=== PATIENT | female | born 1985 | race Caucasian/White ===

== ENCOUNTER 2017-04-04 05:52 | Day surgery (SDC) | payer OTHER ==
[2017-04-04] MEDS ORDERED: NACL 0.9% 1000 ML 1,000 ML IV SCH (07:00)
[2017-04-04] MEDS ORDERED: WATER FOR IRRIG STERILE IR ONE (07:27)
[2017-04-04] MEDS ORDERED: DIPRIVAN 10 MG/ML IV ONE (07:29)
--- NOTE | 2017-04-04 07:34 | Anesthesia Consultation ---
Anesthesia Consult and Med Hx Date of service: 04/04/17 - Airway Anesthetic Teeth Evaluation: Good ROM Head & Neck: Adequate Mental/Hyoid Distance: Adequate Mallampati Class: Class II Intubation Access Assessment: Probably Good - Pulmonary Exam CTA: Yes - Cardiac Exam Cardiac Exam: RRR - Pre-Operative Health Status ASA Pre-Surgery Classification: ASA3 Proposed Anesthetic Plan: MAC - Pulmonary Hx Smoking: Yes (social) Hx Asthma: No - Cardiovascular System Hx Hypertension: No - Central Nervous System Hx Psychiatric Problems: Yes (depression) - Other Systems Hx Obesity: Yes ([place]) - Additional Comments Anesthesia Medical History Comments: NAC
--- NOTE | 2017-04-04 07:35 | Anesthesia Day of Surgery ---
Anesthesia Day of Surgery - Day of Surgery Patient Examined: Yes Patient H&P Reviewed: Yes Patient is NPO: Yes
--- NOTE | 2017-04-04 07:53 | Discharge Summary ---
Providers - Providers Date of discharge: 04/04/17 Attending physician: GHAZALA BRASWELL Hospitalization Condition: Good Procedures: egd Disposition: DC-01 TO HOME OR SELFCARE Core Measure Documentation - Palliative Care Palliative Care/ Comfort Measures: Not Applicable - Core Measures Any of the following diagnoses?: none Exam - Physical Exam Narrative exam: unchanged from pre op - Constitutional Vitals: Temp Pulse Resp BP Pulse Ox 97.4 F L 64 14 115/76 98 04/04/17 07:16 04/04/17 07:16 04/04/17 07:16 04/04/17 07:16 04/04/17 07:16 Plan Activity: advance as tolerated Weight Bearing Status: Full Weight Bearing Diet: regular
--- NOTE | 2017-04-04 07:57 | Operative Report ---
Operative Report Operative Report: OPERATIVE REPORT - EGD DATE 04/04/17 SURGERY: Upper endoscopy. SURGEON: Andi Lux M.D. PROCEDURE: 1. EGD 2. Gastric mucosal bx PRE OP DX: dyspepsia POST OP DX: 1. gastritis 2. hiatal hernia TYPE OF ANESTHESIA: MAC. ESTIMATED BLOOD LOSS: None. COMPLICATIONS: None. SPECIMENS REMOVED: None. FINDINGS: 1. Small hiatal hernia. 2. gastritis INDICATIONS:INDICATION FOR PROCEDURE: Patient is a 31-year-old female with a long history of morbid obesity. She is planned to have a weight loss procedure and is here for preoperative planning EGD. We are evaluating for any pathology that will be prohibitive to her upcoming bariatric surgery. PROCEDURE DETAILS: After consent was reviewed, patient was taken back to the operating room where patient was placed in the left lateral decubitus position and a bite block was placed in the mouth. After a time-out was called, MAC anesthesia was initiated. I then passed the endoscope into her oropharynx, into her esophagus, visualized the entire esophagus, which was all within normal limits. I then visualized the stomach and the first portion of the duodenum and there were no abnormalities with the exception of patchy cobble stonning of the mucosa consistent with chronic gastritis. A forceps biopsy was performed. I then retroflexed the scope in the stomach and visualized the hiatus and I could see a small hiatal hernia. I then desufflated the stomach and removed the endoscope. Patient tolerated procedure well and was transferred to recovery room in good and stable condition.
[2017-04-04 08:07] VITALS: BP 107/96
--- NOTE | 2017-04-04 08:45 | Post Anesthesia Evaluation ---
- Post Anesthesia Evaluation Patient Participated: Yes Airway Patent: Yes Stable Respiratory Function: Yes Nausea/Vomiting: No Temp > 96.8F: Yes Pain Manageable: Yes Adequeate Hydration: Yes Anesthesia Complications: No Block Receding Appropriately: Not Applicable Patient on Ventilator: No
== END 2017-04-04 05:53 | disposition home or self-care (01) ==
LOC: GIO 05:52
PROVIDERS: ATTEND Surgery
DX: K29.70 Gastritis, unspecified, without bleeding (principal); F17.200 Nicotine dependence, unspecified, uncomplicated; F32.9 Major depressive disorder, single episode, unspecified; E66.01 Morbid (severe) obesity due to excess calories; K44.9 Diaphragmatic hernia without obstruction or gangrene; F41.9 Anxiety disorder, unspecified; Z68.42 Body mass index [BMI] 45.0-49.9, adult
CPT/HCPCS: 43239; 81025; 88305; 88342; J2704; J7030

== ENCOUNTER 2017-04-10 07:35 | Inpatient (IN) | payer OTHER ==
[2017-04-10] MEDS ORDERED: NACL BACTERIOSTATIC INFILTRATI ONE (08:39)
--- NOTE | 2017-04-10 08:40 | Anesthesia Consultation ---
Anesthesia Consult and Med Hx Date of service: 04/10/17 - Airway Anesthetic Teeth Evaluation: Good ROM Head & Neck: Adequate Mental/Hyoid Distance: Adequate Mallampati Class: Class II Intubation Access Assessment: Probably Good - Pulmonary Exam CTA: Yes - Cardiac Exam Cardiac Exam: RRR - Pre-Operative Health Status ASA Pre-Surgery Classification: ASA3 Proposed Anesthetic Plan: General - Pulmonary Hx Smoking: Yes (social) Hx Asthma: No - Cardiovascular System Hx Hypertension: No - Central Nervous System Hx Psychiatric Problems: Yes (depression) - Hematic Hx Anemia: No Hx Sickle Cell Disease: No - Other Systems Hx Alcohol Use: No Hx Substance Use: No Hx Cancer: No Hx Obesity: Yes (morbid)
--- NOTE | 2017-04-10 08:40 | Anesthesia Day of Surgery ---
Anesthesia Day of Surgery - Day of Surgery Patient Examined: Yes Patient H&P Reviewed: Yes Patient is NPO: Yes
[2017-04-10] MEDS ORDERED: DILAUDID IV PRN (08:41)
[2017-04-10] MEDS ORDERED: XYLOCAINE 1% 20 mL ONE (08:47)
[2017-04-10] MEDS ORDERED: MARCAINE-EPI/PF 0.5%-1:200,000 INFILTRATI ONE ×2 (08:48→11:07)
[2017-04-10] MEDS ORDERED: XYLOCAINE MPF 2% ONE (08:56)
[2017-04-10] MEDS ORDERED: ZEMURON IV ONE (08:56)
[2017-04-10] MEDS ORDERED: SUBLIMAZE ONE (08:56)
[2017-04-10] MEDS ORDERED: DIPRIVAN 10 MG/ML IV ONE ×2 (08:56→11:44)
[2017-04-10] MEDS ORDERED: PEPCID IV NR (09:00)
[2017-04-10] MEDS ORDERED: VERSED IV NR (09:00)
[2017-04-10] MEDS ORDERED: LACTATED RINGERS 1,000 ML IV SCH (09:00)
[2017-04-10] MEDS ORDERED: PERCOCET 5/325 PO PRN (09:15)
[2017-04-10] MEDS ORDERED: ZOFRAN IV PRN ×2 (09:15→10:32)
[2017-04-10] MEDS ORDERED: ANCEF/STERILE WATER 2 GM/20 ML IV NR (10:00)
[2017-04-10] MEDS ORDERED: FLAGYL 500 MG/100 ML 500 MG/100 ML BAG IV NR (10:00)
[2017-04-10] MEDS ORDERED: TRANSDERM-SCOP TD NR (10:00)
[2017-04-10] MEDS ORDERED: LOVENOX SUB-Q NR (10:30)
[2017-04-10] MEDS ORDERED: MYLICON PO PRN (10:32)
[2017-04-10] MEDS ORDERED: MORPHINE IV PRN (10:32)
[2017-04-10] MEDS ORDERED: APRESOLINE IV PRN (10:32)
[2017-04-10] MEDS ORDERED: REGLAN IV PRN (10:32)
[2017-04-10] MEDS ORDERED: NORCO PO PRN (10:32)
[2017-04-10] MEDS ORDERED: NEOSTIGMINE ONE (10:59)
[2017-04-10] MEDS ORDERED: ROBINUL ONE (10:59)
[2017-04-10] MEDS ORDERED: XYLOCAINE 1% 20 mL INFILTRATI ONE (11:06)
[2017-04-10] MEDS ORDERED: NACL 0.9% IR ONE ×2 (11:07)
[2017-04-10] MEDS ORDERED: NEO SYNEPHRINE ONE (11:36)
[2017-04-10] MEDS ORDERED: DILAUDID ONE (11:49)
[2017-04-10] MEDS ORDERED: LACTATED RINGERS 1,000 ML ONE (12:04)
--- NOTE | 2017-04-10 12:38 | Operative Report ---
Operative Report Operative Report: Operative Report DATE OF PROCEDURE: 04/10/17 PREOPERATIVE DIAGNOSES: Morbid obesity, hiatal hernia POSTOPERATIVE DIAGNOSES: 1.same as pre-op SURGEON: Andi Lux M.D. CAREER COORDINATOR: Venus Wren MD, Cheng Boles CSA PROCEDURE: 1. laparoscopic sleeve gastrectomy 2. laparoscopic hiatal hernia repair ANESTHESIA: General. ESTIMATED BLOOD LOSS: <5 mL. COMPLICATIONS: None. SPECIMEN: Partial gastrectomy. FINDINGS: 1. hiatal hernia INDICATION FOR PROCEDURE: Patient is a 31-year-old female with a long history of morbid obesity. She has tried multiple efforts at weight loss without jail success. She is here today for sleeve gastrectomy. PROCEDURE IN DETAIL: After consent was reviewed, patient was taken back to the operating room, where patient was placed supine on the bed with both arms out. The patient's legs were doubly strapped to the bed. Patient had a foot board in place. Patient had a body warmer placed by anesthesia. Patient was then prepped and draped in normal sterile surgical fashion. After a time-out was called, I made a stab incision in the left subcostal area and placed a Veress needle through this incision and insufflated the abdomen to 18 mmHg pressure. I then counted down a handsbreadth below the xiphoid process in the midline and slightly left lateral injected local anesthetic and made about 0.5 cm transverse incision. I then used a 5-mm Optiview trocar to enter into the abdomen. I then placed a 45-degree scope through this port and inspected the abdomen. There was no injury on entry of the abdomen. I then placed two 5-mm ports in the right upper quadrant, one along left the anterior axillary line and 1 subxiphoid below the costovertebral angle. I then placed a 15-mm port about a handsbreadth right lateral and inferior to my anterior axillary port. I then placed the liver retractor through the subxiphoid port and placed the patient in full reverse Trendelenburg. The GE junction was noted to above the level of the diaphragmatic hiatus. The right and left crura were skeletonized accentuating a small hiatal hernia. An anterior cruraplasty was perfromed with a figure-of-8 stitch using surgidac suture to reapproximate the crura. The stomach and 2cm of distal esophagus were resting in the abdominal cavity without tension. I then identified the pylorus and then counted off 6cm from the pylorus. I then used a LigaSure cutting device to enter into the lesser sac. At that point and then I took down the short gastrics all the way up to the left edie. Then I had anesthesia pass down a 36-Qatari bougie along the lesser curvature of the stomach. I made sure everything else was out of the abdomen except the bougie. I then created my gastric sleeve using a 60-mm laparoscopic stapler. . The sleeve looked good without any twisting or torsion. I then had anesthesia to remove the bougie. Hemostasis was obtained along the staple line. I then used Tiseel along the entirety of the staple line and some on the liver. I then removed liver grasper and took it off the field. I then removed the stomach through the 15-mm port. I then closed that fascia with a #1 PDS in a [id number] fashion using a Rodríguez-Chloé. I then desufflated the abdomen and then removed all port sites. I then closed the incisions with 4-0 Monocryl in subcuticular fashion. I then dressed the wounds with Dermabond. Patient tolerated the procedure well and was transferred to recovery room in good and stable condition.
[2017-04-10] MEDS: LACTATED RINGERS 1,000 ML IV SCH (15:36)
[2017-04-10] MEDS: DILAUDID IV PRN ×2 (17:13→21:28)
[2017-04-10] MEDS: TORADOL IV SCH (18:02)
[2017-04-10] MEDS: ANCEF/NS 1 GM/50 ML 1 GM/50 ML BAG IV SCH (18:04)
[2017-04-10] MEDS: FLAGYL 500 MG/100 ML 500 MG/100 ML BAG IV SCH (18:05)
[2017-04-11] MEDS: LACTATED RINGERS 1,000 ML IV SCH ×2 (00:28→11:07)
[2017-04-11] MEDS: TORADOL IV SCH ×4 (01:11→12:46)
[2017-04-11] MEDS: DILAUDID IV PRN ×4 (01:22→16:11)
[2017-04-11] MEDS: FLAGYL 500 MG/100 ML 500 MG/100 ML BAG IV SCH ×2 (03:00→11:00)
[2017-04-11 03:31] LABS: Basophils % (Auto) 0.2 % (0.0-1.8); Eosinophils % (Auto) 0.1 % (0.0-4.3); Hematocrit 36.6 % (30.3-42.9); Hemoglobin 12.5 gm/dl (10.1-14.3); Mean Corpuscular HGB Conc 34 % (30-34); Mean Corpuscular Hemoglobin 31 pg (28-32); Mean Corpuscular Volume 92 fl (79-97); Platelet Count 220 K/mm3 (140-440); Red Cell Distribution Width 13.6 % (13.2-15.2); White Blood Count 11.8 K/mm3 (4.5-11.0)
[2017-04-11] MEDS: ANCEF/NS 1 GM/50 ML 1 GM/50 ML BAG IV SCH (03:31)
[2017-04-11 04:21] LABS: Blood Urea Nitrogen 9 mg/dL (7-17); Carbon Dioxide 26 mmol/L (22-30)
[2017-04-11 04:22] LABS: Alanine Aminotransferase 16 units/L (7-56); Albumin 3.3 g/dL (3.9-5); Albumin/Globulin Ratio 1.3 %; Alkaline Phosphatase 56 units/L (35-129); Anion Gap 14 mmol/L; Chloride 103.8 mmol/L (98-107); Glucose 79 mg/dL (65-100); Potassium 3.5 mmol/L (3.6-5.0); Sodium 140 mmol/L (137-145); Total Protein 5.9 g/dL (6.3-8.2)
[2017-04-11] MEDS ORDERED: POTASSIUM CHLORIDE PO NR (09:30)
[2017-04-11] MEDS ORDERED: LEXAPRO PO SCH (10:00)
[2017-04-11] MEDS ORDERED: LOVENOX SUB-Q SCH (10:00)
[2017-04-11] MEDS ORDERED: LEXAPRO 30 MG PO SCH (10:00)
[2017-04-11 12:29] VITALS: BP 104/68
--- NOTE | 2017-04-11 13:51 | Discharge Summary ---
Providers - Providers Date of Admission: 04/10/17 07:44 Date of discharge: 04/11/17 Attending physician: GHAZALA BRASWELL Hospitalization Reason for admission: s/p lap gastric sleeve Condition: Good Procedures: lap gastric sleeve Hospital course: pt was admitted after an uneventful lap sleeve gastrectomy. POD#1 she was walking and tolerating clear liquids. She showed no clinical signs of leak or bleeding with normal vital signs and labs. Disposition: DC-01 TO HOME OR SELFCARE Core Measure Documentation - Palliative Care Palliative Care/ Comfort Measures: Not Applicable - Core Measures Any of the following diagnoses?: none Exam - Constitutional Vitals: Temp Pulse Resp BP Pulse Ox 98.1 F 75 20 104/68 99 04/11/17 12:09 04/11/17 12:09 04/11/17 12:09 04/11/17 12:09 04/11/17 12:09 General appearance: Present: no acute distress, well-nourished - Respiratory Respiratory effort: normal Respiratory: bilateral: CTA - Cardiovascular Heart Sounds: Present: S1 & S2 - Extremities Extremities: no ischemia Peripheral Pulses: within normal limits - Abdominal General gastrointestinal: Present: soft, other (appropriately tender to palation , incisions c/d/i) Plan Activity: no restrictions Weight Bearing Status: Full Weight Bearing Diet: clear liquids Follow up with: DR RE [Other] - 7 Days
== END 2017-04-11 16:50 | disposition home or self-care (01) | DRG 327 ==
LOC: 3A 07:44 → 3B-SURG 13:06
PROVIDERS: ADMIT Surgery; ATTEND Surgery
PROC: 0DB64Z3 Excision of Stomach, Percutaneous Endoscopic Approach, Vertical (ICD-10-PCS; principal; 2017-04-10)
PROC: 0BQS4ZZ (ICD-10-PCS; 2017-04-10)
PROC: 0BQR4ZZ (ICD-10-PCS; 2017-04-10)
DX: K44.9 Diaphragmatic hernia without obstruction or gangrene (principal); K90.49 Malabsorption due to intolerance, not elsewhere classified; E66.01 Morbid (severe) obesity due to excess calories; G43.909 Migraine, unspecified, not intractable, without status migrainosus; F41.8 Other specified anxiety disorders; K30 Functional dyspepsia; D50.9 Iron deficiency anemia, unspecified; Z68.41 Body mass index [BMI] 40.0-44.9, adult
CPT/HCPCS: 36415; 80053; 81025; 85025; 88307; 94760; A4217; C9250; J0690; J1170; J1650; J1885; J2250; J2270; J2370; J2405; J2704; J2710; J3010; J7120